=== PATIENT | female | born 1960 | race Caucasian/White ===

== ENCOUNTER → 2017-08-17 | Outpatient (CLI) | payer BC ==
[~2017-08-17] MED LIST: HYOSCYAMINE0.125 M1 SL; VIVELLE TD; [UNRECOGNIZED DRUG - OTHER] TD
--- NOTE | 2017-08-18 05:22 | RADIOLOGY REPORT PS360 ---
EXAM: LUMBAR SPINE 5 VIEWS HISTORY: PARESTHESIA OF LEFT FOOT ORDERING PHYSICIAN: Ct Meyers MD PATIENT AGE: 57 years COMPARISON: None FINDINGS: Normal alignment. No fracture or dislocation. No lytic or blastic change. No significant degenerative change. The disc spaces are preserved. Incidental note made of a mild amount retained colonic feces IMPRESSION: Negative lumbar spine
== END ==
LOC: RAD 16:53
DX: R20.2 Paresthesia of skin (principal)

== ENCOUNTER → 2017-10-05 | Outpatient (CLI) | payer BC ==
--- NOTE | 2017-10-06 07:23 | RADIOLOGY REPORT PS360 ---
MRI-L-SPINE W/O, MRI-3D RENDERING/MYELOGRAM HISTORY: PAREATHESIA OF LEFT FOOT ORDERING PHYSICIAN: Ct Meyers MD PATIENT AGE: 57 years COMPARISON: Radiograph obtained [id number] TECHNIQUE: Standard multiplanar multiecho sequences are performed without contrast. 3-D MIP and myelographic images are also rendered and reviewed FINDINGS: There is normal alignment. The spinal cord ends at the T12-L1 level. T11-T12: Minimal right lateral recess narrowing from facet hypertrophic change. L1-L2, L2-L3, and L3-L4 have an unremarkable appearance. L4-L5: Mild facet and ligamentum hypertrophy with mild bilateral lateral recess narrowing. L5-S1: There is a small left paracentral disc herniation impinging upon the left S1 nerve root. Mild facet and ligamentum flavum hypertrophy at this level also noted. IMPRESSION: 1. Small left paracentral disc herniation at L5-S1 causing moderate to severe left lateral recess narrowing and compression upon the left S1 nerve root. 2. Mild facet spondylosis
== END ==
LOC: RAD 07:48
DX: R20.2 Paresthesia of skin (principal)